=== PATIENT | female | born 2000 | race Caucasian/White ===

== ENCOUNTER 2023-04-30 13:59 | Emergency (ER) | payer OTHER ==
[~2023-04-30] VITALS: Ht 170.2 cm; Wt 59.6 kg
[2023-04-30 14:00] VITALS: BP 143/83; TEMP 97.5; O2SAT 100
[2023-04-30] MEDS ORDERED: IBUP-1022 PO (18:08)
[2023-04-30] MEDS: IBUPROFEN 600MG TAB PO ONE (18:14)
== END 2023-04-30 18:24 | disposition home or self-care (01) ==
LOC: M ED 13:59
DX: S50.01XA Contusion of right elbow, initial encounter (principal); Y92.019 Unspecified place in single-family (private) house as the place of occurrence of the external cause; Y99.9 Unspecified external cause status; Y93.9 Activity, unspecified; W00.0XXA Fall on same level due to ice and snow, initial encounter; F10.10 Alcohol abuse, uncomplicated; Z88.0 Allergy status to penicillin; Z79.1 Long term (current) use of non-steroidal anti-inflammatories (NSAID)